=== PATIENT | male | born 1985 | race Two or more races ===

== ENCOUNTER 2016-12-31 13:50 | Emergency (ER) | payer SELFPAY ==
[2016-12-31 13:56] VITALS: BP 133/73; PULSE 103; TEMP 97.8; BMI 30.5
--- NOTE | 2016-12-31 15:09 | PDOC ---
History of Present Illness - General Chief Complaint: Edema Stated Complaint: SWELLING LEFT FOOT Time Seen by Provider: 12/31/16 15:06 History Source: Patient Exam Limitations: No Limitations - History of Present Illness Initial Comments: CHIEF COMPLAINT: 31 y/o afebrile male with no significant PMH c/o right toe pain, oozing and swelling. HISTORY OF PRESENT ILLNESS: The patient states he had a blister on his right 3rd toe that popped. 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 He states he started having yellow oozing from the toe yesterday. The patient states now his left foot is swollen. He denies f/c, n/v/d, streaking. Vital signs on arrival are notable for pulse of 103. REVIEW OF SYSTEMS: GENERAL/CONSTITUTIONAL: No fever/chills. No weakness. No weight change. HEAD, EYES, EARS, NOSE AND THROAT: No change in vision. No ear pain or discharge. No sore throat.. GENITOURINARY: No dysuria, frequency, or change in urination. MUSCULOSKELETAL: +left toe swelling, pain and oozing. No neck or back pain. SKIN: No rash or easy bruising. NEUROLOGIC: No headache, vertigo, loss of consciousness, or loss of sensation. PHYSICAL EXAM: GENERAL: The patient is awake, alert, and fully oriented, in no acute distress. He has normal gait. HEAD: Normal with no signs of trauma. EXTREMITIES: Normal range of motion. Mild swelling and erythema to left dorsal foot and feet. 3rd left toe with open, dried blister dried yellow discharge. No streaking. NEUROLOGICAL: Normal speech, normal gait. CN II-XII grossly intact. SKIN: Warm, dry, normal turgor, no rashes or lesions noted. Past History - Past Medical History Allergies/Adverse Reactions: Allergies Allergy/AdvReac Type Severity Reaction Status Date / Time No Known Allergies Allergy Verified 12/31/16 13:56 Home Medications: Ambulatory Orders Sulfamethoxazole/Trimethoprim [Bactrim Ds -] 1 tab PO BID #20 tablet 12/31/16 Other medical history: PATIENT DENIES MEDICAL HISTORY - Psycho/Social/Smoking Cessation Hx Suicidal Ideation: No Smoking History: Never smoked Hx Alcohol Use: No Drug/Substance Use Hx: No *Physical Exam - Vital Signs Last Vital Signs Temp Pulse Resp BP Pulse Ox 97.8 F 103 H 18 133/73 96 12/31/16 13:53 12/31/16 13:53 12/31/16 13:53 12/31/16 13:53 12/31/16 13:53 Medical Decision Making - Medical Decision Making A/P: 31 y/o afebrile, otherwise healthy male with left toe/foot cellulitis. Plan is to discharge to home with rx for bactrim. Instructed him to take entire course, apply neosporin twice a day and keep feet dry. Instructed him to return to the ER with any worsening or concerning symptoms. The patient verbalizes understanding of all instructions, has no further questions and is awaiting discharge. *DC/Admit/Observation/Transfer Diagnosis at time of Disposition: Toe infection Cellulitis Qualifiers: Site of cellulitis: extremity Site of cellulitis of extremity: toe Laterality: left Qualified Code(s): L03.032 - Cellulitis of left toe - Discharge Dispostion Disposition: HOME Condition at time of disposition: Good - Prescriptions Prescriptions: Sulfamethoxazole/Trimethoprim [Bactrim Ds -] 1 tab PO BID #20 tablet - Patient Instructions Printed Discharge Instructions: DI for Cellulitis -- Adult Additional Instructions: Discharge instructions: -Take antibiotics as prescribed for entire 10 days -Keep feet clean and dry -Apply neosporin ointment on affected areas 2 times per day -Return to the ER with any worsening or concerning symptoms - Post Discharge Activity Work/School Note: Back to Work
== END 2016-12-31 15:31 | disposition home or self-care (01) ==
LOC: JERFT 13:50
DX: L03.032 Cellulitis of left toe (principal); L03.116 Cellulitis of left lower limb
CPT/HCPCS: 99281-25

== ENCOUNTER 2020-09-03 21:28 | Emergency (ER) | payer SELFPAY ==
[2020-09-03 21:36] VITALS: BMI 33.2
[2020-09-03] MEDS ORDERED: FAMOTIDINE 20 MG TABLET PO ONE (22:25)
[2020-09-03] MEDS ORDERED: MAG HYDROX/AL HYDROX/SIMETH 30 ML UNIT-DOSE CUP PO ONE (22:25)
[2020-09-03] MEDS ORDERED: FAMOTIDINE 20 MG TABLET ONE ×2 (22:27→22:54)
[2020-09-03] MEDS ORDERED: MAG HYDROX/AL HYDROX/SIMETH 30 ML UNIT-DOSE CUP ONE ×2 (22:28→22:54)
[2020-09-04 02:29] LABS: BASO % 0.9 % (0-2.0); EOS % 2.8 % (0-4.5); HEMATOCRIT 42.1 % (35.4-49); HEMOGLOBIN 14.1 GM/dL (11.7-16.9); LYMPH % 29.9 % (8-40); MCH 29.1 pg (25.7-33.7); MCHC 33.5 g/dl (32.0-35.9); MEAN PLT VOLUME 7.7 fl (7.5-11.1); MONO % 7.3 % (3.8-10.2); NEUT % 59.1 % (42.8-82.8); PLATELET COUNT 313 K/MM3 (134-434); RBC 4.84 M/mm3 (4.00-5.60); WHITE BLOOD COUNT 10.8 K/mm3 (4.0-10.0)
[2020-09-04 02:37] LABS: CHLORIDE 104 mmol/L (98-107); POTASSIUM 5.2 mmol/L (3.5-5.1); SODIUM 136 mmol/L (136-145)
[2020-09-04 02:40] LABS: ALBUMIN 3.5 g/dl (3.4-5.0); CALCIUM 9.1 mg/dL (8.5-10.1); LIPASE 85 U/L (73-393)
[2020-09-04 02:41] LABS: ANION GAP 6 MMOL/L (8-16); BLOOD UREA NITROGEN 11.8 mg/dL (7-18); CO2 26 mmol/L (21-32); GLUCOSE,RANDOM 97 mg/dL (74-106)
[2020-09-04 02:42] LABS: SGOT/AST 125 U/L (15-37); SGPT/ALT 73 U/L (13-61)
[2020-09-04 02:43] LABS: CREATININE 0.9 mg/dL (0.55-1.3)
[2020-09-04 02:45] LABS: BILIRUBIN,TOTAL 0.7 mg/dL (0.2-1); TOT PROT 7.3 g/dl (6.4-8.2)
[2020-09-04 02:46] LABS: ALK PHOS 58 U/L (45-117)
[2020-09-04 02:49] LABS: N-TERMINAL BNP 23.7 pg/ml (5-125)
[2020-09-04] MEDS ORDERED: ACETAMINOPHEN 325 MG TABLET (FP) PO ONE (03:52)
[2020-09-04] MEDS ORDERED: ACETAMINOPHEN 325 MG TABLET (FP) ONE (04:16)
[2020-09-04 06:04] VITALS: TEMP 98.7
[2020-09-04 07:02] VITALS: BP 157/107; PULSE 92
== END 2020-09-04 07:03 | disposition home or self-care (01) ==
LOC: JER 21:28
DX: R10.13 Epigastric pain (principal)
CPT/HCPCS: 36415; 74177-TC; 76705-TC; 80053; 82962; 83605; 83690; 83880; 84484; 85025; 93005; 93010; 93970-TC; 99285-25